=== PATIENT | male | born 1940 | race Caucasian/White ===

== ENCOUNTER 2018-11-15 07:41 | Day surgery (SDC) | payer OTHER ==
[2018-11-12 08:45] VITALS: BMI 23.7
[2018-11-15] MEDS ORDERED: PROPOFOL 20 ML ONE ×2 (09:39)
[2018-11-15] MEDS ORDERED: ePHEDrine SULFATE 50 MG/1 ML AMPULE ONE (10:30)
[2018-11-15] MEDS ORDERED: GLYCOPYRROLATE 0.2 MG/1 ML VIAL ONE (10:30)
[2018-11-15 10:38] VITALS: TEMP 97.8
[2018-11-15 11:21] VITALS: BP 130/69; PULSE 95
== END 2018-11-15 11:20 | disposition home or self-care (01) ==
LOC: FASU-ENDO 07:41
PROVIDERS: ATTEND Internal Medicine Gastroenterology
PROC: 0DJD8ZZ Inspection of Lower Intestinal Tract, Via Natural or Artificial Opening Endoscopic (ICD-10-PCS; principal; 2018-11-15 09:52)
DX: Z86.010 Personal history of colon polyps (principal); K57.30 Diverticulosis of large intestine without perforation or abscess without bleeding